=== PATIENT | female | born 1990 | race Caucasian/White ===

== ENCOUNTER 2020-08-07 20:50 | Emergency (ER) | payer OTHER ==
--- OUTSIDE RECORDS SUMMARY | 2020-08-07 21:12 | XMS ---
:1990 Author Organization [facility] Re-disclosure Warning The records that you are about to access may contain information from federally- assisted alcohol or drug abuse programs. If such information is present, then the following federally mandated warning applies: This information has been disclosed to you from records protected by federal confidentiality rules (42 CFR part 2). The federal rules prohibit you from making any further disclosure of this information unless further disclosure is expressly permitted by the written consent of the person to whom it pertains or as otherwise permitted by 42 CFR part 2. A general authorization for the release of medical or other information is NOT sufficient for this purpose. The Federal rules restrict any use of the information to criminally investigate or prosecute any alcohol or drug abuse patient.The records that you are about to access may contain highly sensitive health information, the redisclosure of which is protected by Article 27-F of the [facility] Public Health law. If you continue you may haveaccess to information: Regarding HIV / AIDS; Provided by facilities licensed or operated by the [facility] Office of Mental Health; or Provided by the [facility] Office for People With Developmental Disabilities. If such information is present, then the following [facility] mandated warning applies: This information has been disclosed to you from confidential records which are protected by state law. State law prohibits you from making any further disclosure of this information without the specific written consent of the person to whom it pertains, or as otherwise permitted by law. Any unauthorized further disclosure in violation of state law may result in a fine or longterm sentence or both. A general authorization for the release of medical or other information is NOT sufficient authorization for further disclosure. Results ID Date Data Source [id number] 05/19/2020 12:00:00 AM EDT [facility] Name Value Range Interpretation Code Description Data Carmel rce(s) Supporting Document(s ) COV2 [facility] This lab was ordered by CASSIDY gallegos nd reported by [facility]. ID Date Data Source [id number] 04/14/2020 01:56:00 PM EDT [facility] Name Value Range Interpretation Code Description Data Carmel rce(s) Supporting Document(s ) COV2 [facility] This lab was ordered by CASSIDY gallegos nd reported by [facility] [place]. Procedure
--- NOTE | 2020-08-07 21:14 | PDOC ---
History of Present Illness - General Chief Complaint: Psychiatric Stated Complaint: ANXIETY Time Seen by Provider: 08/07/20 20:58 - History of Present Illness Initial Comments: This 30-year-old woman with a history of silent sinus syndrome and anxiety presents with a 1 day history of increased anxiety and panic attacks. Patient states that she was working (she works as a hairdresser) at approximately 12 PM when she had onset of lightheadedness and rapid heartbeat. This lasted approximately 20 minutes but she continued to have episodes of lightheadedness throughout the afternoon. States that she felt at times during the time that she felt she would collapse. She has been eating and drinking normally during this time. No recent fever/chills, cough, shortness of breath or lower extremity pain/swelling. She states that the lightheadedness today is similar to previous episodes of anxiety and panic attacks. She states that she is been having more anxiety and panic attacks than usual in the last week. She is curre ntly taking amoxicillin as well as prednisone (has been tapered off over the last few days) prescribed by her ENT doctor for sinusitis. Patient states that she drank heavily last night secondary to anxiety, stating that she consumed several glasses of vodka. Although the patient states that she has a "alcohol issue", she is never been in a detox/rehab program. She does not recall ever having acute withdrawal from alcohol LMP (has been irregular recently) "probably last month"; patient is sexually active; not using any contraception No daily meds other than those prescribed for sinusitis; has had sinus surgery in the past No known allergies Daily marijuana smoker/drinks heavily several times a week (could not be specific, stating that "it depends") Past History - Medical History Allergies/Adverse Reactions: Allergies Allergy/AdvReac Type Severity Reaction Status Date / Time No Known Allergies Allergy Verified 08/07/20 21:02 Home Medications: Ambulatory Orders Amoxicillin - [Amoxicillin 500mg Capsule -] 500 mg PO BID 08/07/20 Prednisone 08/07/20 Anemia: No Asthma: No Cancer: No Cardiac Disorders: No CVA: No COPD: No CHF: No Dementia: No Diabetes: No GI Disorders: No Disorders: No HTN: No Hypercholesterolemia: No Liver Disease: No Seizures: No Thyroid Disease: No - Surgical History Abdominal Surgery: No Appendectomy: No Cardiac Surgery: No Cholecystectomy: No Lung Surgery: No Neurologic Surgery: No Orthopedic Surgery: No - Psycho-Social/Smoking History Smoking History: Never smoked Have you smoked in the past 12 months: No Review of Systems - Review of Systems Able to Perform ROS?: Yes Comments:: 12 point review of systems is negative except for what is noted in the history of present illness *Physical Exam - Physical Exam GENERAL: Adult female, alert and oriented x3, no acute distress, appearing somewhat anxious; T 97.9 F orally;RR 18/min; pulse ox 99% on room air;139/77 HEAD: Normal with no signs of trauma. EYES: PERRLA, EOMI, sclera anicteric, conjunctiva clear. ENT: Ears normal, nares patent, oropharynx clear without exudates. Dry mucous membranes. NECK: Normal range of motion, supple without lymphadenopathy, JVD, or masses. LUNGS: Breath sounds equal, clear to auscultation bilaterally. No wheezes, and no crackles. HEART:Regular rate and rhythm, normal S1 and S2 without murmur, rub or gallop. ABDOMEN:.normal bowel sounds No guarding,tenderness or rebound.No masses No distention. EXTREMITIES: Normal range of motion, no edema. No clubbing or cyanosis. No erythema, or tenderness. NEUROLOGICAL: Cranial nerves II through XII grossly intact. Normal speech. No focal neurological deficits. SKIN: Warm, Dry, normal turgor, no rashes or lesions noted. Twelve-lead electrocardiogram performed and interpreted by me: Normal sinus rhy thm 68 bpm; axis is rightward; intervals, waveforms are normal. No evidence of acute ST or T wave abnormalities. No evidence of acute cardiac arrhythmia ED Treatment Course - LABORATORY CBC & Chemistry Diagram: 08/07/20 21:50 08/07/20 21:50 Medical Decision Making - Medical Decision Making As noted above, this 30-year-old woman with a history of chronic sinus issues an d anxiety/possible alcohol abuse, presents with 1 day history of persistent lightheadedness that began when she had a panic attack earlier today. Patient admits that she has been more anxious than normal in recent days; of note, she is been taking prednisone for acute sinusitis (now tapered). Exam as noted with somewhat dry mucous membranes but no other significant abnormalities. She is not tachycardic or tremulous and does not appear to be in acute alcohol withdrawal. Twelve-lead electrocardiogram shows no evidence of acute ischemia, cardiac arrhythmia or other acute issues CBC, chemistry profile, UA/PGU sent to investigate if there is any underlying medical reason for the patient's lightheadedness PGU was negative Other than white blood cell count being slightly elevated at 12,900, remainder of the laboratory evaluation is essentially normal. Patient received 1 L normal saline IV and felt significantly less lightheaded after this. Results of the lab test discussed with the patient. Recommendations for stress reduction such as regular daily exercise (such as walking) discussed with the patient. She should also try to avoid excessive alcohol use. She should return to the ER if she has persistent severe weakness/lightheadedness or if she experiences shortness of breath, cough or fever. Meanwhile, she should call to arrange follow-up within the next 3 to 4 days Discharge - Discharge Information Problems reviewed: Yes Clinical Impression/Diagnosis: Anxiety Condition: Stable Disposition: HOME - Follow up/Referral Referrals: Kristin Marrufo MD [Primary Care Provider] - 1 week - Patient Discharge Instructions Patient Printed Discharge Instructions: DI for Anxiety -- Adult Additional Instructions: Rest; drink plenty of water Eat regular meals and try to get plenty of sleep Avoid excessive alcohol intake Continue regular exercise such as walking several times a week Return to ER if you have severe lightheadedness or experience fever/vomiting Follow-up with within the next 5 to 7 days - Post Discharge Activity Work/Back to School Note: My Personal Safety Plan
[2020-08-07 21:21] VITALS: BP 139/77; PULSE 78; TEMP 97.9; BMI 19.6
[2020-08-07] MEDS ORDERED: SODIUM CHLORIDE 1,000 ML IV STA (21:41)
[2020-08-07 22:11] LABS: BASO % 0.7 % (0-2.0); EOS % 1.2 % (0-4.5); HEMATOCRIT 39.3 % (32.4-45.2); HEMOGLOBIN 13.2 GM/dl (10.7-15.3); LYMPH % 24.7 % (8-40); MCH 29.9 pg (25.7-33.7); MCHC 33.7 g/dl (32.0-36.0); MEAN CELL VOLUME 88.8 fl (80-96); MEAN PLT VOLUME 8.3 fl (7.5-11.1); MONO % 8.1 % (3.8-10.2); NEUT % 65.3 % (42.8-82.8); PLATELET COUNT 255 K/MM3 (134-434); RBC 4.42 M/mm3 (3.60-5.2); RDW 12.2 % (11.6-15.6); WHITE BLOOD COUNT 12.9 K/mm3 (4.0-10.8)
[2020-08-07 22:19] LABS: ALBUMIN 3.8 g/dl (3.4-5.0); BILIRUBIN,TOTAL 0.8 mg/dl (0.2-1); CALCIUM 8.8 mg/dl (8.5-10); CREATININE 0.7 mg/dl (0.55-1.3); POTASSIUM 3.8 mmol/L (3.5-5.1); TOT PROT 6.9 g/dl (6.4-8.2)
--- NOTE | 2020-08-08 21:40 | EKG ---
Test Reason : Blood Pressure : / mmHG Vent. Rate : 068 BPM Atrial Rate : 068 BPM P-R Int : 190 ms QRS Dur : 084 ms QT Int : 380 ms P-R-T Axes : 064 094 063 degrees QTc Int : 404 ms NORMAL SINUS RHYTHM RIGHTWARD AXIS BORDERLINE ECG NO PREVIOUS ECGS AVAILABLE Confirmed by FARNAZ MERCEDES, HOANG ([id number]) on 08/08/2020 9:39:48 PM Referred By: VALE COREAS Confirmed By:HOANG OSEI MD
== END 2020-08-07 23:30 | disposition home or self-care (01) ==
LOC: FER 20:50
PROC: 3E0337Z Introduction of Electrolytic and Water Balance Substance into Peripheral Vein, Percutaneous Approach (ICD-10-PCS; principal; 2020-08-07)
DX: F41.9 Anxiety disorder, unspecified (principal)
CPT/HCPCS: 36415; 80053; 81003; 84703; 85025; 93005; 99285-25

== ENCOUNTER 2021-02-07 14:00 | Emergency (ER) | payer OTHER ==
[2021-02-07] MEDS ORDERED: SODIUM CHLORIDE 1,000 ML IV STA (14:20)
[2021-02-07] MEDS ORDERED: ONDANSETRON 4 MG/2 ML VIAL IVPUSH ONE (14:20)
[2021-02-07] MEDS ORDERED: FAMOTIDINE 20 MG/50 ML IVPB 20 MG/50 ML MG IVPB ONE ×2 (14:20→14:42)
[2021-02-07 14:38] VITALS: TEMP 98; BMI 20.5
[2021-02-07] MEDS ORDERED: ONDANSETRON 4 MG/2 ML VIAL ONE (14:42)
[2021-02-07] MEDS ORDERED: ACETAMINOPHEN 1000 MG/100 ML VIAL (NON FORMULARY) IVPB ONE (14:45)
[2021-02-07] MEDS ORDERED: ACETAMINOPHEN INJECTION 100 ML IVPB ONE (15:08)
[2021-02-07 15:31] LABS: BASO % 1.8 % (0-2.0); HEMATOCRIT 42.2 % (32.4-45.2); HEMOGLOBIN 14.3 GM/dl (10.7-15.3); LYMPH % 7.8 % (8-40); MCH 29.9 pg (25.7-33.7); MCHC 33.8 g/dl (32.0-36.0); MEAN CELL VOLUME 88.5 fl (80-96); MEAN PLT VOLUME 8.5 fl (7.5-11.1); MONO % 6.3 % (3.8-10.2); NEUT % 83.1 % (42.8-82.8); PLATELET COUNT 248 K/MM3 (134-434); RBC 4.77 M/mm3 (3.60-5.2); RDW 11.6 % (11.6-15.6)
[2021-02-07 15:40] LABS: CALCIUM 9.2 mg/dl (8.5-10); CREATININE 0.8 mg/dl (0.55-1.3); MAGNESIUM 1.9 mg/dL (1.8-2.4); POTASSIUM 3.8 mmol/L (3.5-5.1); TOT PROT 7.2 g/dl (6.4-8.2)
[2021-02-07 16:58] VITALS: BP 119/58; PULSE 74
[2021-02-07 18:01] LABS: URIC ACID CRYSTALS FEW /hpf (NONE SEEN)
[2021-02-07 19:55] LABS: METHADONE, UR NEGATIVE ng/ml (CUTOFF=300); OPIATES, URI NEGATIVE ng/ml (CUTOFF=300)
[2021-02-07 19:56] LABS: PHENCYCLIDINE,URINE NEGATIVE ng/ml (CUTOFF=25); URINE BARBITURATES NEGATIVE ng/ml (CUTOFF=200); URINE BENZODIAZEPINES NEGATIVE ng/ml (CUTOFF=200)
[2021-02-07 20:23] LABS: COCAINE, UR NEGATIVE ng/ml (CUTOFF=300)
[2021-02-07 20:31] LABS: URINE AMPHETAMINES NEGATIVE ng/ml (CUTOFF=500)
== END 2021-02-07 17:36 | disposition home or self-care (01) ==
LOC: FER 14:00
PROC: 3E033GC Introduction of Other Therapeutic Substance into Peripheral Vein, Percutaneous Approach (ICD-10-PCS; principal; 2021-02-07)
DX: F43.0 Acute stress reaction (principal); R25.2 Cramp and spasm
CPT/HCPCS: 36415; 80053; 80307; 81003; 81015; 81025; 83735; 84703; 85025; 87804; 93005; 99285-25; C9803; J0131; U0003; U0005

== ENCOUNTER 2022-06-18 19:50 | Emergency (ER) | payer OTHER ==
[2022-06-18 19:58] VITALS: BP 132/78; PULSE 80; RESP 18; TEMP 98.6; BMI 20.5
== END 2022-06-18 20:47 | disposition home or self-care (01) ==
LOC: FER 19:50
DX: R05.1 Acute cough (principal)
CPT/HCPCS: 0241U-QW; 71045-TC-FY; 99283-25

== ENCOUNTER 2022-08-23 15:06 | Emergency (ER) | payer OTHER ==
[2022-08-23] MEDS ORDERED: IBUPROFEN 600 MG TABLET (FP) PO ONE (16:27)
[2022-08-23 16:59] VITALS: BP 122/72; PULSE 76; RESP 18; TEMP 98.3; BMI 45.3
== END 2022-08-23 17:00 | disposition home or self-care (01) ==
LOC: JER 15:06
DX: R68.84 Jaw pain (principal)
CPT/HCPCS: 99283-25

== ENCOUNTER 2022-10-28 17:51 | Emergency (ER) | payer OTHER ==
[2022-10-28 18:08] VITALS: BP 120/70; PULSE 77; RESP 20; TEMP 99.3; BMI 20.5
[2022-10-28] MEDS ORDERED: SODIUM CHLORIDE 1,000 ML IV STA (18:43)
[2022-10-28] MEDS ORDERED: ONDANSETRON 4 MG/2 ML VIAL IVPB ONE (18:43)
[2022-10-28] MEDS ORDERED: ONDANSETRON 4 MG/2 ML VIAL ONE (18:53)
[2022-10-28 19:02] LABS: HEMATOCRIT 41.2 % (32.4-45.2); HEMOGLOBIN 14.5 G/dL (10.7-15.3); MCH 30.3 pg (25.7-33.7); MCHC 35.2 g/dl (32.0-36.0); MEAN CELL VOLUME 86.1 fl (80-96); MEAN PLT VOLUME 8.7 fl (7.5-11.1); PLATELET COUNT 197.8 10^3/uL (134-434); RBC 4.79 10^6/uL (3.60-5.2); RDW 13.1 % (11.6-15.6)
[2022-10-28 19:17] LABS: ALBUMIN 4.4 g/dl (3.4-5.0); BILIRUBIN,TOTAL 1.6 mg/dl (0.2-1); CALCIUM 8.9 mg/dl (8.5-10); CREATININE 0.6 mg/dl (0.55-1.3); TOT PROT 7.3 g/dl (6.4-8.2)
== END 2022-10-28 20:30 | disposition home or self-care (01) ==
LOC: FER 17:51
PROC: 3E033GC Introduction of Other Therapeutic Substance into Peripheral Vein, Percutaneous Approach (ICD-10-PCS; principal; 2022-10-28)
PROC: 3E0337Z Introduction of Electrolytic and Water Balance Substance into Peripheral Vein, Percutaneous Approach (ICD-10-PCS; 2022-10-28)
DX: K52.9 Noninfective gastroenteritis and colitis, unspecified (principal); R11.2 Nausea with vomiting, unspecified
CPT/HCPCS: 0241U-QW; 36415; 80053; 81025; 83690; 85027; 96361; 96374; 99284-25